=== PATIENT | male | born 1995 | race Caucasian/White ===

== ENCOUNTER 2018-04-26 21:29 | Emergency (ER) | payer BC ==
[~2018-04-26] VITALS: Ht 185.4 cm; Wt 77.1 kg
[~2018-04-26 21:29] MED LIST: AZIT250 PO; Benadryl 50 mg50 MG PO; CEPH250A PO; CODACE30 PO; CYCL10 PO; Ciprodex Otic7.5 ML LEFTEAR; DIPH50 PO; HYDACE5 PO; IBUP400 PO; Keflex500 MG PO; METPRE4DP PO; NAPR220 PO; NAPR500 PO; Norco 7.5-3251 EACH PO; PRED20 PO; PROM25 PO; Pepcid20 MG PO; Percocet 5-3251 EACH PO; RXCYCL10 PO; Ultram50 MG PO; Zithromax250 MG PO
[2018-04-26] MEDS ORDERED: Doxycycline Hy100 MG PO (22:17)
== END 2018-04-26 22:38 | disposition home or self-care (01) ==
LOC: ER 21:29
DX: L03.114 Cellulitis of left upper limb (principal); Z88.0 Allergy status to penicillin; Z88.2 Allergy status to sulfonamides; Z87.891 Personal history of nicotine dependence; Z86.14 Personal history of Methicillin resistant Staphylococcus aureus infection
CPT/HCPCS: 99283

== ENCOUNTER 2019-03-25 18:49 | Emergency (ER) | payer BC ==
[~2019-03-25] VITALS: Ht 182.9 cm; Wt 83.9 kg
[~2019-03-25 18:49] MED LIST changes: +Doxycycline Hy100 MG PO; +Flagyl500 MG PO; +LEVFLO500 PO
[2019-03-25] MEDS ORDERED: Zithromax250 MG PO (19:16)
== END 2019-03-25 19:21 | disposition home or self-care (01) ==
LOC: ER 18:49
DX: J02.9 Acute pharyngitis, unspecified (principal); Z88.0 Allergy status to penicillin; Z88.2 Allergy status to sulfonamides; Z79.899 Other long term (current) drug therapy; Z87.891 Personal history of nicotine dependence
CPT/HCPCS: 87081; 87430; 99283

== ENCOUNTER 2021-07-14 17:54 | Emergency (ER) | payer SELFPAY ==
[~2021-07-14] VITALS: Ht 180.3 cm; Wt 84.8 kg
[2021-07-14 18:19] LABS: Source, Urine Clean Catch
[2021-07-14 18:21] LABS: Appearance, Urine Clear (Clear); Bilirubin, Urine Neg (Neg); Blood, Urine Neg (Neg); Color, Urine Yellow (P-Yellow); Glucose Qualitative, Urine Neg (Neg); Ketones, Urine Neg (Neg); Leukocyte Esterase, Urine Neg (Neg); Nitrite, Urine Neg (Neg); Protein, Urine Neg (Neg); Specific Gravity, Urine 1.025 (1.003-1.022); Urobilinogen, Urine NORM (Normal)
[2021-07-14 18:29] LABS: BASOPHILS ABSOLUTE AUTO 0.01 K/mm3 (0.00-0.23); BASOPHILS PERCENT AUTO 0 % (0-2); EOSINOPHILS ABSOLUTE AUTO 0.03 K/mm3 (0.00-0.68); EOSINOPHILS PERCENT AUTO 1 % (0-6); Hematocrit 43.9 % (37.0-53.0); Hemoglobin 14.5 g/dL (13.5-17.5); IMMATURE GRAN ABSOLUTE AUTO 0.02 K/mm3 (0.00-0.10); IMMATURE GRAN PERCENT AUTO 1 % (0-1); LYMPHOCYTES PERCENT AUTO 28 % (21-46); MONOCYTES ABSOLUTE AUTO 0.83 K/mm3 (0.16-1.47); MONOCYTES PERCENT AUTO 21 % (4-13); Mean Corpuscular HGB 31.5 pg (26.0-34.0); Mean Corpuscular Volume 95 fL (80-100); Mean Platelet Volume 12.2 fL (9.1-12.4); NEUTROPHILS ABSOLUTE AUTO 1.97 K/mm3 (1.96-9.15); NEUTROPHILS PERCENT AUTO 50 % (41-73); Platelet Count 144 K/mm3 (150-400); RDW Coefficient Variation 12.9 % (11.7-14.2); RDW Standard Deviation 45.9 fL (35.1-46.3); Red Blood Cell Count 4.61 M/mm3 (4.30-5.90); White Blood Cell Count 3.96 K/mm3 (4.00-11.30)
[2021-07-14 18:45] LABS: Alanine Aminotransfer (ALT/SGP 33 U/L (12-78); Albumin, Blood 3.5 g/dL (3.4-5.0); Alk Phos 81 U/L (50-136); Anion Gap 7 mmol/L (6-16); Aspartate Aminotrans (AST/SGOT 34 U/L (12-37); Bilirubin, Total 0.2 mg/dL (0.1-1.0); Blood Urea Nitrogen 14 mg/dL (8-24); Bun/Creatinine Ratio 12.4 (12.0-20.0); CO2, Blood 24 mmol/L (21-32); Calcium, Blood 8.1 mg/dL (8.5-10.1); Chloride, Blood 108 mmol/L (98-108); Creatinine, Blood 1.13 mg/dL (0.60-1.20); Globulin, Blood 3.5 g/dL (2.2-4.0); Glomerular Filtration Rate >60 (60-); Glucose, Blood 110 mg/dL (70-99); Potassium, Blood 3.9 mmol/L (3.5-5.5); Sodium, Blood 139 mmol/L (136-145)
== END 2021-07-14 21:01 | disposition left against medical advice (07) ==
LOC: ER 17:54
PROVIDERS: Emergency Medicine
DX: R10.32 Left lower quadrant pain (principal); U07.1 COVID-19; Z53.21 Procedure and treatment not carried out due to patient leaving prior to being seen by health care provider; J45.909 Unspecified asthma, uncomplicated; Z88.0 Allergy status to penicillin; Z88.2 Allergy status to sulfonamides; Z87.891 Personal history of nicotine dependence
CPT/HCPCS: 36415; 74177; 80053; 81003; 83690; 85025; 99284-25; Q9967

== ENCOUNTER 2024-10-11 20:05 | Inpatient (IN) | payer SELFPAY ==
[~2024-10-11] VITALS: Ht 182.9 cm; Wt 105.0 kg
[2024-10-11 20:47] LABS: Source, Urine Clean Catch
[2024-10-11 20:52] LABS: Appearance, Urine Clear (Clear); Bilirubin, Urine Neg (Neg); Blood, Urine Neg (Neg); Glucose Qualitative, Urine Neg (Neg); Ketones, Urine Neg (Neg); Leukocyte Esterase, Urine Neg (Neg); Nitrite, Urine Neg (Neg); Protein, Urine Neg (Neg); Urobilinogen, Urine NORM (Normal)
[2024-10-11] MEDS ORDERED: LORazepam 1 MG Tab PO ONE (21:00)
[2024-10-11 21:03] LABS: Color, Urine Pale Yellow (P-Yellow)
[2024-10-11 21:16] LABS: U Amphetamine Screen Not Detected; U Barbituate Screen Not Detected; U Benzodiazapine Screen Not Detected; U Buprenorphine Screen Not Detected; U Cannabinoids Screen DETECTED; U Cocaine Screen DETECTED; U Methadone Screen Not Detected; U Methamphetamine Screen Not Detected; U Opiates Screen Not Detected; U Oxycodone Screen Not Detected; U Phencyclidine Screen Not Detected
[2024-10-11 21:31] LABS: BASOPHILS ABSOLUTE AUTO 0.05 K/mm3 (0.00-0.23); BASOPHILS PERCENT AUTO 1 % (0-2); EOSINOPHILS ABSOLUTE AUTO 0.27 K/mm3 (0.00-0.68); EOSINOPHILS PERCENT AUTO 4 % (0-6); Hematocrit 47.4 % (37.0-53.0); Hemoglobin 16.8 g/dL (13.5-17.5); IMMATURE GRAN ABSOLUTE AUTO 0.02 K/mm3 (0.00-0.10); IMMATURE GRAN PERCENT AUTO 0 % (0-1); LYMPHOCYTES ABSOLUTE AUTO 3.99 K/mm3 (0.84-5.20); LYMPHOCYTES PERCENT AUTO 55 % (21-46); MONOCYTES PERCENT AUTO 8 % (4-13); Mean Corpuscular HGB 32.5 pg (26.0-34.0); Mean Corpuscular HGB Conc 35.4 g/dL (31.5-36.5); Mean Corpuscular Volume 92 fL (80-100); Mean Platelet Volume 10.6 fL (9.1-12.4); NEUTROPHILS ABSOLUTE AUTO 2.39 K/mm3 (1.96-9.15); NEUTROPHILS PERCENT AUTO 33 % (41-73); Platelet Count 305 K/mm3 (150-400); Red Blood Cell Count 5.17 M/mm3 (4.30-5.90); White Blood Cell Count 7.32 K/mm3 (4.00-11.30)
[2024-10-11 21:52] LABS: Alanine Aminotransfer (ALT/SGP 25 U/L (12-78); Albumin, Blood 4.2 g/dL (3.4-5.0); Albumin/Globulin Ratio 1.2 (0.8-1.8); Alk Phos 100 U/L (50-136); Anion Gap 11 mmol/L (3-11); Aspartate Aminotrans (AST/SGOT 24 U/L (12-37); Bilirubin, Total 0.2 mg/dL (0.1-1.0); Blood Urea Nitrogen 10 mg/dL (8-24); Bun/Creatinine Ratio 9.3 (12.0-20.0); CO2, Blood 24 mmol/L (21-32); Calcium, Blood 8.7 mg/dL (8.5-10.1); Chloride, Blood 112 mmol/L (98-108); Creatinine, Blood 1.07 mg/dL (0.60-1.20); Ethanol (Alcohol), Blood, Med 247 mg/dL; Globulin, Blood 3.6 g/dL (2.2-4.0); Glomerular Filtration Rate 96 (60-); Glucose, Blood 112 mg/dL (70-99); Potassium, Blood 3.8 mmol/L (3.5-5.5); Salicylate 1.8 mg/dL (2.8-20.0); Sodium, Blood 143 mmol/L (136-145); Total Protein, Blood 7.8 g/dL (6.4-8.2)
[2024-10-11 21:53] LABS: Acetaminophen, Random <2.0 ug/mL (10.0-30.0)
[2024-10-11] MEDS ORDERED: Droperidol 5 mg/2 ml Vial IM ONE (22:40)
[2024-10-12] MEDS ORDERED: Diazepam 5 MG / ML 2ML SYR IV ONE ×2 (10:05→12:00)
[2024-10-12] MEDS ORDERED: Ondansetron HCl 2 MG / ML 2ML Vial IV ONE (12:00)
[2024-10-12] MEDS ORDERED: ChlordiazePOXIDE 25 MG Cap PO PRN (12:45)
[2024-10-12] MEDS ORDERED: LORazepam 2 MG/ML 1ML Injection IV PRN (12:45)
[2024-10-12] MEDS ORDERED: FLU VACC TS2024-25(6MOS UP)/PF 45 MCG/0.5 ML SYRINGE IM SCH (12:45)
[2024-10-12] MEDS ORDERED: Folic Acid 1 MG in NS 50 ML IV SCH (13:00)
[2024-10-12] MEDS ORDERED: Thiamine HCl 100 MG in NS 50 ML IV SCH (13:00)
[2024-10-12 18:05] VITALS: BP 160/86
--- NOTE | 2024-10-12 19:49 | NUR ---
PT REPORTS THAT HE DID HAVE SUICIDAL THOUGHTS THIS MORNING THAT HE DESCRIBED "DEPRESSION WHICH CAN TURN INTO THOUGHTS OF SUICIDE". PT DENIED THOUGHTS OF SUICIDE AT THIS TIME. ENCOURAGED PT TO REPORT ANY CHANGE TO STAFF IMMEDIATELY. DISCUSSED PSYCHIATRY REFERRAL.
--- NOTE | 2024-10-12 23:16 | NUR ---
RECEIVED CALL FROM [employer] AT APPROX 6303 NOTIFIYING THIS RN THAT PT'S HEART RATE DROPPED INTO THE FORTIES FOR A FEW BEATS. DISCUSSED WITH PT, PT ASYMPTOMATIC. 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
[2024-10-13 03:57] VITALS: BP 140/87
--- NOTE | 2024-10-13 05:33 | NUR ---
SHIFT SUMMARY: JOSSE IS A&OX4. VSS, NO ACUTE EVENTS OVERNIGHT. PT HAS REPORTED GOOD SYMPTOM CONTROL WITH MEDICATIONS PER MAR AND HAS DENIED SUICIDAL IDEATION THIS SHIFT. 1:1 SITTER AT BEDSIDE. HE IS INDEPENDENT IN THE ROOM, SITTER MAINTAINING VISUAL CONTACT AT ALL TIMES. HE DENIES ANY DIFFICULTY WITH URINATION BUT STATES HE HAS GONE LONGER THAN NORMAL WITHOUT A BOWEL MOVEMENT (USUALLY GOES 1-2 TIMES PER DAY). HE IS TOLERATING PO INTAKE WELL AND REPORTS MILD NAUSEA. PT REPORTS THAT HIS HEADACHE HAS BEEN IMPROVING. HE IS LYING IN BED WITH THE SHORT CALL LIGHT IN REACH, BED IN LOWEST POSITION. WILL GIVE REPORT TO DAY SHIFT RN.
[2024-10-13 07:06] VITALS: BP 151/90
[2024-10-13] MEDS ORDERED: Enoxaparin 40 MG/0.4 ML SYR SC SCH (09:00)
[2024-10-13 10:56] LABS: BASOPHILS ABSOLUTE AUTO 0.02 K/mm3 (0.00-0.23); BASOPHILS PERCENT AUTO 0 % (0-2); EOSINOPHILS ABSOLUTE AUTO 0.18 K/mm3 (0.00-0.68); EOSINOPHILS PERCENT AUTO 3 % (0-6); Hematocrit 47.7 % (37.0-53.0); Hemoglobin 16.8 g/dL (13.5-17.5); IMMATURE GRAN ABSOLUTE AUTO 0.02 K/mm3 (0.00-0.10); IMMATURE GRAN PERCENT AUTO 0 % (0-1); LYMPHOCYTES ABSOLUTE AUTO 1.72 K/mm3 (0.84-5.20); LYMPHOCYTES PERCENT AUTO 28 % (21-46); MONOCYTES ABSOLUTE AUTO 0.57 K/mm3 (0.16-1.47); MONOCYTES PERCENT AUTO 9 % (4-13); Mean Corpuscular HGB 32.6 pg (26.0-34.0); Mean Corpuscular HGB Conc 35.2 g/dL (31.5-36.5); Mean Corpuscular Volume 92 fL (80-100); Mean Platelet Volume 10.9 fL (9.1-12.4); NEUTROPHILS ABSOLUTE AUTO 3.54 K/mm3 (1.96-9.15); NEUTROPHILS PERCENT AUTO 59 % (41-73); Platelet Count 245 K/mm3 (150-400); RDW Coefficient Variation 11.9 % (11.7-14.2); RDW Standard Deviation 40.9 fL (35.1-46.3); Red Blood Cell Count 5.16 M/mm3 (4.30-5.90); White Blood Cell Count 6.05 K/mm3 (4.00-11.30)
[2024-10-13 11:18] LABS: Albumin, Blood 3.8 g/dL (3.4-5.0); Albumin/Globulin Ratio 1.1 (0.8-1.8); Bilirubin, Total 0.7 mg/dL (0.1-1.0); Bun/Creatinine Ratio 11.7 (12.0-20.0); Calcium, Blood 9.1 mg/dL (8.5-10.1); Creatinine, Blood 1.03 mg/dL (0.60-1.20); Globulin, Blood 3.5 g/dL (2.2-4.0); Potassium, Blood 4.1 mmol/L (3.5-5.5); Total Protein, Blood 7.3 g/dL (6.4-8.2)
[2024-10-13] MEDS ORDERED: Nicotine 21 MG PATCH TOP ONE (11:25)
[2024-10-13] MEDS ORDERED: Ondansetron HCl 2 MG / ML 2ML Vial IV PRN (11:45)
[2024-10-13 15:45] VITALS: BP 147/98
--- NOTE | 2024-10-13 17:57 | NUR ---
SHIFT SUMMARY PT IS A/OX4. PT HAS 1:1 SITTER FOR SI. PT SHARES THAT HE HAS HAD SUICIDAL THOUGHTS THROUGHOUT THIS SHIFT, HOWEVER DECREASED THIS EVENING FROM THIS MORNING. PT MEDICATED WITH ATIVAN X2 AND LIBRIUM X2 THIS SHIFT FOR ALCOHOL WITHDRAWAL, SYMPTOMS INCREASING THIS AFTERNOON. PT DESCRIBED INCREASE IN TREMORS, SWEATING, ANXIETY, AND NAUSEA THIS AFTERNOON. SYMPTOMS DECREASED WITH ADMINISTRATION OF ATIVAN. PT IS A SBA DUE TO DESCRIBING DIZZINESS UPON AMBULATING. ON TELE RUNNING NORMAL SINUS RYTHYM/SINUS AVILA. PT EXPLAINS THAT DR URENA CONSULTED AND SPOKE WITH THE PT IN THE ER. DR SAL CONSULTED AGAIN THIS AM. PT VISISTED THIS SHIFT BY A CLOSE FRIEND.
[2024-10-13 21:04] VITALS: BP 151/107
[2024-10-14 05:40] VITALS: BP 143/100
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
[2024-10-14] MEDS ORDERED: NS 250 ML IV PRN (08:45)
[2024-10-14] MEDS ORDERED: Nicotine 21 MG PATCH TOP SCH (09:00)
[2024-10-14] MEDS ORDERED: Polyethylene Glycol 3350 17 gm PO SCH (09:00)
[2024-10-14 09:52] VITALS: BP 122/85
[2024-10-14 15:22] VITALS: BP 125/80
--- NOTE | 2024-10-14 16:49 | NUR ---
SHIFT SUMMARY PT AOX4, COOPERATIVE, ABLE TO MAKE NEEDS KNOWN. NO SIGN OF SI TODAY. PT DID HAVE DIZZY EPISODE IN BATHROOM AFTER BRUSHING TEETH, NO FALL OR INJURY OCCURED. UTILIZING 50 LIBRIUM AND 2 ATIVAN NEEDED. BED IN LOWEST POSITION, CALL LIGHT WITHIN REACH.
[2024-10-14] MEDS ORDERED: ChlordiazePOXIDE 25 MG Cap PO PRN (18:00)
--- NOTE | 2024-10-14 18:00 | NUR ---
INFORMED MD PT CONDITION IS NOT GETTING BETTER. PT TREMORS ARE NOT BEING EASILY CONTROLLED WITH MEDICATION AND DOUBLE VISION HAS BECOME "MORE VIVID" REPORTS PATIENT. MD INFORMED TO TRANSFER DOWN TO PCU.
[2024-10-14 19:46] VITALS: BP 133/86
--- NOTE | 2024-10-14 19:49 | NUR ---
REPORT GIVEN TO WEB SYSTEMS DEVELOPER. PT TRANSPORTED TO ICU VIA WHEELCHAIR, ALL PERSONAL BELONGINGS BROUGHT FROM CLOSET AND GIVEN TO ICU STAFF.
--- NOTE | 2024-10-14 19:57 | NUR ---
TRANSFER TO ICU: RECEIVED REPORT FROM ALEJANDRO ALEJO AT 1919. PT ARRIVED TO ICU 02 PCU STATUS AT 194 VIA WHEELCHAIR. PT ALERT AND ORIENTED X4. COOPERATIVE WITH CARE AND PLEASANT. PT ENDORSES EXPERIENCING VISUAL HALLUCINATIONS, DENIES AUDITORY. ENDORSES HEADACHE AND NAUSEA. SLIGHT TREMOR NOTED WHEN ARMS EXTENDED. PT ON RA WITH SPO2 MID TO HIGH 90'S. DENIES SOB. LUNGS CLEAR T/O. ROTARY SAW OPERATOR IN PLACE, SR WITH HR 70'S. SBP 130'S. DENIES CHEST PAIN/PRESSURE. TOLERATING PO INTAKE. PIV TO RFA INTACT AND SALINE LOCKED. ENDORSE SI CURRENTLY BUT STATES HE DOES NOT WANT TO ACT ON IT. HAS NOT YET VOIDED SINCE ARRIVAL TO ICU, NO BM YET. 1:1 SITTER AT THE DOOR, BED LOW AND LOCKED.
[2024-10-14] MEDS ORDERED: Metoclopramide HCl 5MG / ML 2ML Vial IV PRN (20:30)
[2024-10-14] MEDS ORDERED: Acetaminophen 325 MG TABLET PO PRN (20:30)
[2024-10-14] MEDS ORDERED: FentaNYL Citrate 50 MCG/ML 2 ML Injection IV PRN (20:30)
[2024-10-15 00:22] VITALS: BP 120/88
[2024-10-15 04:16] VITALS: BP 124/82
--- NOTE | 2024-10-15 05:16 | NUR ---
SHIFT SUMMARY: PT CONTINUES TO BE ALERT AND ORIENTED X4. ENDORSES HAVING MULTIPLE NIGHTMARES T/O THE NIGHT AND WAKING UP SCARED. PT HAVING VISUAL HALLUCINATIONS T/O THE NIGHT, OCCASIONAL HEADACHES AND NAUSEA. CIWA 8-13. MEDICATED WITH PRN ATIVAN AND LIBRIUM. PT STILL STATING HE FEELS SUICIDAL AT TIMES BUT HAS NO PLAN. REMAINS ON RA T/O THE NIGHT WITH SPO2 MID TO HIGH 90'S. FORDER OPERATOR IN PLACE, SR WITH HR 60-80'S. SBP 120'S. DENIES CP/PRESSURE OR SOB. PT UNABLE TO VOID THIS AM, BLADDER SCAN SHOWED 300 ML. NO BM THIS SHIFT. PIV TO RFA PATENT AND SALINE LOCKED. SITTER AT DOORWAY. TOLERATING PO INTAKE.BED LOW AND LOCKED.
[2024-10-15 06:27] LABS: BASOPHILS ABSOLUTE AUTO 0.01 K/mm3 (0.00-0.23); BASOPHILS PERCENT AUTO 0 % (0-2); EOSINOPHILS ABSOLUTE AUTO 0.14 K/mm3 (0.00-0.68); EOSINOPHILS PERCENT AUTO 2 % (0-6); Hematocrit 47.6 % (37.0-53.0); Hemoglobin 16.8 g/dL (13.5-17.5); IMMATURE GRAN ABSOLUTE AUTO 0.02 K/mm3 (0.00-0.10); IMMATURE GRAN PERCENT AUTO 0 % (0-1); LYMPHOCYTES ABSOLUTE AUTO 1.77 K/mm3 (0.84-5.20); LYMPHOCYTES PERCENT AUTO 30 % (21-46); MONOCYTES ABSOLUTE AUTO 0.69 K/mm3 (0.16-1.47); MONOCYTES PERCENT AUTO 12 % (4-13); Mean Corpuscular HGB 32.6 pg (26.0-34.0); Mean Corpuscular HGB Conc 35.3 g/dL (31.5-36.5); Mean Corpuscular Volume 92 fL (80-100); Mean Platelet Volume 11.1 fL (9.1-12.4); NEUTROPHILS ABSOLUTE AUTO 3.33 K/mm3 (1.96-9.15); NEUTROPHILS PERCENT AUTO 56 % (41-73); Platelet Count 217 K/mm3 (150-400); RDW Coefficient Variation 11.8 % (11.7-14.2); RDW Standard Deviation 40.2 fL (35.1-46.3); Red Blood Cell Count 5.16 M/mm3 (4.30-5.90); White Blood Cell Count 5.96 K/mm3 (4.00-11.30)
[2024-10-15 07:06] LABS: Bun/Creatinine Ratio 14.4 (12.0-20.0); Calcium, Blood 9.2 mg/dL (8.5-10.1); Creatinine, Blood 1.18 mg/dL (0.60-1.20); Potassium, Blood 4.3 mmol/L (3.5-5.5)
[2024-10-15 08:00] VITALS: BP 136/90
[2024-10-15] MEDS ORDERED: Thiamine HCl 100 MG Tab PO SCH (09:00)
[2024-10-15] MEDS ORDERED: Folic Acid 1 MG TAB PO SCH (09:00)
--- NOTE | 2024-10-15 09:00 | NUR ---
[place] of care: Patient resting quietly in bed with sitter observing. Vital signs are stable & patient is calm, oriented, & relaxed. He does not endorse anxiety or agitation. CIWA of 3 due to moderate headache - prn Tylenol & Fentanyl administered. Patient states he is still "having thoughts of suicide" but "I don't have a plan". All safety measures being implemented. Education provided regarding care plan & available medications for pain/withdrawal. He would like provider follow up regarding his night terrors/nightmares.
[2024-10-15 11:45] VITALS: BP 136/76
[2024-10-15 16:00] VITALS: BP 127/83
--- NOTE | 2024-10-15 17:27 | NUR ---
Shift summary: CIWA scores have ranged from 8-15 today. 2mg Ativan x2 & one dose of 50mg Librium administered. Complaints of a headache have been consistent, necessitating two doses of Tylenol & 3 doses of 25mcg Fentanyl. Patient has been pleasant & cooperative. Vital signs stable with heart rate in NSR with rate of 60-80 & SBP 120-130. Continues to endorse SI with no plan. Sitter remains at bedside & all safety interventions remain in place. At this time patient is resting with eyes closed. Will continue to monitor.
[2024-10-15 20:00] VITALS: BP 138/78
--- NOTE | 2024-10-15 22:42 | NUR ---
ASSUMED CARE OF PT AT 1900. REPORT RECEIVED AT DOORWAY OF ROOM. PT PRESENT IN BED SLEEPING AT THIS TIME. SLEEP HAS BEEN AN ISSUE WITH PT SECONDARY TO HIS NIGHT TERRORS AND W/D'S. 1:1 SITTER PRESENT FOR PT SAFETY. PT MAINTAINS HIGH LEVEL S.I. PT STATES HE KNOWS THAT HE WOULD BE FOUND OUT IF HE ATTEMPTS TO HARM HIMSELF WHILE IN HOSPITAL. DOES ACKNOWLEDGE THAT HE WILL EVENTUALLY GET MOVED TO U FOR FURTHER TREATMENT. WILL REVIEW CHART AND PLAN OF CARE FOR THIS PT.
--- NOTE | 2024-10-15 23:10 | NUR ---
PT CURRENTLY RESTING IN BED. HAS BEEN UP AND AMBULATES AROUND NURSE'S DESK. PT USES FRONT-WHEEL WALKER SECONDARY TO PT SAYING HIS LEGS FEEL "SHAKY". PT HAS BEEN MEDICATED WITH LIBRIUM AND WITH LORAZEPAM FOR ETOH W/D'S. 1:1 SITTER FOR SAFETY.
--- NOTE | 2024-10-16 02:28 | NUR ---
PT AWAKENS AND IS AGITATED. MEDICATED PT WITH 2 MG ATIVAN AND 50 MG LIBRIUM. ORAL CHECK TO ENSURE PT SWALLOWS MEDS. THIS UPSETS PT AND HE STATES HE FEELS LIKE HE IS BEING "TREATED LIKE A CRIMINAL" EXPLAINED TO PT THAT THIS WAS STANDARD PRACTICE WITH A PATIENT WITH S.I. PT STATES THAT HIS HEADACHE IS VERY SEVERE AND WANTS HIS FENTANYL. ADMINISTERED 25 MCG'S FENTANYL. DID INFORM PT THAT HE WOULD BE TRANSITIONED TO ORAL PAIN MEDS BEFORE HE IS TRANSFERRED TO U. THIS UPSETS PT WELL. PT CURRENTLY SLEEPING.
[2024-10-16 03:45] VITALS: BP 137/83
[2024-10-16 04:13] LABS: BASOPHILS ABSOLUTE AUTO 0.02 K/mm3 (0.00-0.23); BASOPHILS PERCENT AUTO 0 % (0-2); EOSINOPHILS ABSOLUTE AUTO 0.15 K/mm3 (0.00-0.68); EOSINOPHILS PERCENT AUTO 3 % (0-6); Hematocrit 45.4 % (37.0-53.0); Hemoglobin 15.9 g/dL (13.5-17.5); IMMATURE GRAN ABSOLUTE AUTO 0.03 K/mm3 (0.00-0.10); IMMATURE GRAN PERCENT AUTO 1 % (0-1); LYMPHOCYTES PERCENT AUTO 35 % (21-46); MONOCYTES ABSOLUTE AUTO 0.71 K/mm3 (0.16-1.47); MONOCYTES PERCENT AUTO 13 % (4-13); Mean Corpuscular HGB 32.6 pg (26.0-34.0); Mean Corpuscular Volume 93 fL (80-100); Mean Platelet Volume 11.4 fL (9.1-12.4); NEUTROPHILS PERCENT AUTO 49 % (41-73); Platelet Count 218 K/mm3 (150-400); RDW Coefficient Variation 11.8 % (11.7-14.2); Red Blood Cell Count 4.87 M/mm3 (4.30-5.90); White Blood Cell Count 5.51 K/mm3 (4.00-11.30)
[2024-10-16 04:34] LABS: Bun/Creatinine Ratio 11.9 (12.0-20.0); Calcium, Blood 9.2 mg/dL (8.5-10.1); Creatinine, Blood 1.09 mg/dL (0.60-1.20); Potassium, Blood 3.7 mmol/L (3.5-5.5)
--- NOTE | 2024-10-16 05:55 | NUR ---
PT HAS NOT HAD ANY S/S SELF HARMING BEHAVIOR. PT HAS BEEN ABLE TO SLEEP FOR MOST OF THE NIGHT. HAS BEEN MEDICATED TWICE WITH 50 MG LORAZEPAM, AND 2 MG ATIVAN FOR INCREASED S/S WITHDRAWALS. HAS MAINTAINED CIWA 6-10. HAS HAD ONE CIWA THAT WAS 20 WHEN HE WAS ANGRY EARLIER. CURRENTLY HIS CIWA < 5. WILL CONTINUE TO MONITOR PT, AND WILL REPORT OFF TO ONCOMING RN.
[2024-10-16 08:53] VITALS: BP 129/83
[2024-10-16 14:22] VITALS: BP 139/93
--- NOTE | 2024-10-16 14:59 | NUR ---
REPORT: Given to [facility] nurse, questions answered. COVID test requested.
[2024-10-16 16:32] LABS: Influenza A, PCR NEGATIVE (NEGATIVE); Influenza B, PCR NEGATIVE (NEGATIVE); Resp Syncytial Virus, PCR NEGATIVE (NEGATIVE); SARS-Cov-2 (COVID-19) PCR, MMC NEGATIVE (NEGATIVE)
[2024-10-16] MEDS ORDERED: NICO21TP TOP (17:18)
[2024-10-16] MEDS ORDERED: B-1100 M1 PO (17:18)
--- NOTE | 2024-10-16 17:21 | NUR ---
DISCHARGE: Pt discharged to U in care of security transport. Pt ambulated out of ICU. His belongings and discharge paperwork given to security.
== END 2024-10-16 17:22 | DRG 897 ==
LOC: ER 20:05 → EOR 20:06 → MEDS 20:06 → ICUE 10-14 19:38
PROVIDERS: Internal Medicine; ADMIT Emergency Medicine
PROC: HZ2ZZZZ Detoxification Services for Substance Abuse Treatment (ICD-10-PCS; principal; 2024-10-11)
DX: F10.239 Alcohol dependence with withdrawal, unspecified (principal); R45.851 Suicidal ideations; F32.A Depression, unspecified; F14.10 Cocaine abuse, uncomplicated; F12.10 Cannabis abuse, uncomplicated; F41.9 Anxiety disorder, unspecified; F10.229 Alcohol dependence with intoxication, unspecified; F15.10 Other stimulant abuse, uncomplicated; J45.909 Unspecified asthma, uncomplicated; Y90.8 Blood alcohol level of 240 mg/100 ml or more; Z88.0 Allergy status to penicillin; Z88.2 Allergy status to sulfonamides; Z88.1 Allergy status to other antibiotic agents; Z88.8 Allergy status to other drugs, medicaments and biological substances; Z87.891 Personal history of nicotine dependence; Z79.899 Other long term (current) drug therapy; Z91.51 Personal history of suicidal behavior; Z71.51 Drug abuse counseling and surveillance of drug abuser
CPT/HCPCS: 0241U; 36415; 80048; 80053; 80320; 81003; 85025; 87086; 93005; 93010; 94760; 96372; 96374; 96375; 96376; 99285-25; A9270; G0378; G0480; J1650; J1790; J2060; J2405; J2765; J3010; J3360; J3411; J7050

== ENCOUNTER 2024-10-16 14:46 | Inpatient (IN) | payer SELFPAY ==
[~2024-10-16] VITALS: Ht 180.3 cm; Wt 89.5 kg
[2024-10-16] MEDS ORDERED: Ibuprofen 600 MG Tab PO PRN (15:55)
[2024-10-16] MEDS ORDERED: Acetaminophen 325 MG TABLET PO PRN (16:00)
[2024-10-16] MEDS ORDERED: FLU VACC TS2024-25(6MOS UP)/PF 45 MCG/0.5 ML SYRINGE IM SCH (16:00)
[2024-10-16] MEDS ORDERED: Aluminum Hydroxide 320MG/5ML 473 ML PO PRN (16:05)
[2024-10-16] MEDS ORDERED: NICO21TP TOP (17:18)
[2024-10-16] MEDS ORDERED: B-1100 M1 PO ×2 (17:18)
[2024-10-16 17:58] VITALS: BP 128/99
[2024-10-16 18:09] VITALS: BP 128/99
--- NOTE | 2024-10-16 18:42 | NUR ---
SHIFT SUMMARY/ADMISSION NOTE PT ARRIVED TO [facility] FROM ICU AT APPROX 1727. PT IS AxOx4. PLEASANT AND COOPERATIVE WITH CARE. PT REPORTS FEELING SUICIDAL WITHOUT INTENT AT THIS TIME. HE DENIES HI AND AVH. PT STATES HE WAS ADMITTED FOR "FEELING SUICIDAL AND TRYING TO DRINK HIMSELF TO ." PT IS MOTIVATED TO BETTER HIMSELF FOR HIS KIDS AND WANTS TO QUIT DRINKING. PT'S ADMISSION NOT COMPLETED, ONCOMING NOC SHIFT RN'S AWARE. PT WAS ORIENTED TO THE UNIT AND PROVIDED DINNER. PT IS CURRENTLY SITTING IN GROUP ROOM WATCHING TV. DENIES ANY NEEDS AT THIS TIME.
[2024-10-16] MEDS ORDERED: LORazepam 1 MG Tab PO PRN (20:55)
[2024-10-16] MEDS ORDERED: TraZODone HCl 100 MG Tab PO SCH (21:00)
[2024-10-16] MEDS ORDERED: Prazosin HCl 1 MG Cap PO SCH (21:00)
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
[2024-10-17] MEDS ORDERED: Nicotine 21 MG PATCH TOP ONE (09:05)
[2024-10-17 09:07] VITALS: BP 133/84
[2024-10-17] MEDS ORDERED: HydrOXYzine Pamoate 50 MG Cap PO PRN (16:05)
[2024-10-17] MEDS ORDERED: TraZODone HCl 100 MG Tab PO PRN (16:10)
--- NOTE | 2024-10-17 17:19 | NUR ---
SHIFT SUMMARY PT A/O X4; PLEASANT AND COOPERATIVE WITH CARE. HE DENIES SI, HI, OR ANY HALLUCINATIONS. PT REPORTS THAT HE FEELS BETTER TODAY THAN HE HAS FELT IN A LONG TIME. HE ATTRIBUTES HIS DRINKING BEING THE MAIN CAUSE OF HIS PRIOR SI AND IS INTERESTED IN QUITTING DRINKING. HIS CIWA HAS BEEN NEGATIVE FOR THE DURATION OF THE SHIFT. PT HAS AGREED TO REMAIN AT THE [facility] IN ORDER TO RECEIVE MEDICATION MANAGEMENT AND RESOURCES. PT MONITORED VIA Q15 ROUNDS FOR SAFETY.
--- NOTE | 2024-10-17 17:29 | NUR ---
Pt Financial Barriers Identified Pt is uninsured and per Treatment team it was requested of me to look into resources to see if patient qualifys for Medicaid or if he can have a payment plan. I reached out to our department that handles eligibility and resources and they provided a Financial Assistance Application for the pt to fill out to potentially get some help with his medical stay and Inpatient stay. Have provided to Pt and let him know with his RN Clarisse about how to fill it out.
[2024-10-17 20:51] VITALS: BP 124/79
[2024-10-17] MEDS ORDERED: Gabapentin 300 MG Cap PO SCH (21:00)
--- NOTE | 2024-10-18 04:23 | NUR ---
PATIENT WAS IN THE GROUP ROOM AT THE BEGINNING OF THE SHIFT, WATCHING TELEVISION WITH STAFF AND PEERS. HE WAS PLEASANT AND COOPERATIVE WITH CARES. HE HAD A MUCH BETTER DAY, LESS WORRY ABOUT FINANCES FOR HIS STAY HERE. HE PARTICIPATED IN SNACK TIME AT 1999. HE WAS COMPLIANT WITH EVENING MEDICATIONS AND REQUESTED PRNS, WHICH WERE GIVEN TO GOOD EFFECT. HE WAS HELPFUL TO NEW PEER, GETTING HIM ORIENTED TO UNIT. HE WENT BACK TO WATCH TELEVISION, AND ABOUT A HALF HOUR LATER CAME OUT WITH EYES HALF CLOSED AND STATED THAT HE WAS TIRED AND GOING TO BED. HE CONTINUED TO PRESENT PLEASANT AND RELAXED. HE THEN WENT TO BED AND WAS NOTED TO BE RESTING QUIETLY WITH EYES CLOSED AND RESPIRATIONS CONFIRMED FOR THE REMAINDER OF THE SHIFT. HE HAD NO S/SX SUICIDAL IDEATION OR SELF HARM THIS SHIFT. CONTINUING TO MONITOR FOR SAFETY WITH Q15 MINUTE CHECKS.
[2024-10-18 08:17] VITALS: BP 145/87
[2024-10-18] MEDS ORDERED: Nicotine 21 MG PATCH TOP SCH (09:00)
--- NOTE | 2024-10-18 16:50 | NUR ---
SHIFT SUMMARY: PT ALERT, ORIENTED AND COOPERATIVE. DENIES SI, HI AND AVH. STATES THAT HE IS FEELING "WONDERFUL" TODAY AND FEELS 95%. HE WAS PRESENT ON THE UNIT FOR MEALS AND ACTIVE IN [place]. HAD A VISIT WITH HIS GIRLFRIEND. PLAN FOR DISCHARGE TOMORROW 10/19.
[2024-10-18 22:08] VITALS: BP 133/82
--- NOTE | 2024-10-19 04:11 | NUR ---
PATIENT WAS IN UP IN THE GROUP ROOM AT THE BEGINNING OF THE SHIFT, WATCHING TELEVISION. HE WAS PLEASANT, TALKATIVE AND COOPERATIVE. HE DESCRIBED HIS MOOD "HAPPY AND CALM" AND STATED THAT IT WAS "BECAUSE OF THIS UNIT". HE JOINED THE GROUP FOR 2000 SNACK TIME IN THE DINING ROOM. HE WAS COMPLIANT WITH EVENING MEDICATIONS. HE REQUESTED AND WAS GIVEN IBUPROFEN AND TYLENOL FOR PAIN "MOSTLY IN MY FINGERS" OF 3/10, AND REPORTED THAT IT LOWERED TO 1/10. HE WATCHED TELEVISION FOR A TIME AND THEN WENT TO BED. HE WAS NOTED TO BE RESTING QUIETLY MOST OF THE SHIFT WITH EYES CLOSED AND RESPIRATIONS CONFIRMED. HE AWOKE ABOUT 0330 AND REQUESTED TEA, WHICH WAS GIVEN. HE WAS ABLE TO DRINK IT AND GO BACK TO BED. HE HAD NO S/SX SUICIDAL IDEATION OR SELF HARM THIS SHIFT. CONTINUING TO MONITOR FOR SAFETY WITH Q15 MINUTE CHECKS. HE IS SCHEDULED TO DISCHARGE TO HOME TODAY.
[2024-10-19] MEDS ORDERED: GABA300 PO (06:32)
[2024-10-19] MEDS ORDERED: HYDPAM50 PO (06:33)
[2024-10-19 07:46] VITALS: BP 108/79
--- NOTE | 2024-10-19 12:14 | NUR ---
BELONGINGS RECONCILED WITH MICHAEL TRAN NO DISCREPANCIES NOTED, AMBULATES OUT WITH SMILE AND HAPPY, HOME WITH BROTHER, STATED UNDERSTANDING OF D/C, NO LONGER ENDORSING SI
== END 2024-10-19 09:26 | disposition home or self-care (01) | DRG 885 ==
LOC: BHU 14:46
PROVIDERS: ADMIT Psychiatry & Neurology Psychiatry
DX: F33.9 Major depressive disorder, recurrent, unspecified (principal); R45.851 Suicidal ideations; F14.20 Cocaine dependence, uncomplicated; F15.10 Other stimulant abuse, uncomplicated; F41.1 Generalized anxiety disorder; F10.20 Alcohol dependence, uncomplicated; Z88.0 Allergy status to penicillin; Z88.2 Allergy status to sulfonamides; Y90.8 Blood alcohol level of 240 mg/100 ml or more
CPT/HCPCS: A9270